=== PATIENT | female | born 1990 | race Caucasian/White ===

== ENCOUNTER → 2022-12-10 15:07 | Outpatient (CLI) | payer OTHER, SELFPAY ==
--- NOTE | 2022-12-10 15:12 | DI.US.S_ITS ---
PROCEDURE: US OB <= 14 WEEKS FETUS INDICATIONS: VIABILITY CHECK OUTSIDE/PRIOR DATING DATA: Last menstrual period (LMP): 10/06/22 LMP-based estimated date of delivery (TOVA): 07/13/23. First dating scan (date and location): This study. Estimated date of delivery (TOVA) from first dating scan: 07/20/23. The calculations are made using the current TOVA of 07/20/23. TECHNIQUE: Real-time scanning was performed of the fetus and maternal pelvic organs, with image documentation. Endovaginal scanning was also performed to better visualize the fetus and maternal ovaries. COMPARISON: None. FINDINGS: Embryo: [place]-rump length is 1.8 cm, which correlates with a gestational age of 8 weeks 2 days, +/-5 days. Heart rate: 162 beats per minute Maternal organs: Ovaries normal considering gestational status. IMPRESSION: Early 1st trimester gestation, viable, with heart rate 162 beats per minute and with the delivery date projected to be centered on 07/20/23, +/-5 days. Follow-up anatomic survey at approximately 20 weeks gestation We strive to produce accurate, complete, and clear reports of imaging services. To assist us in improving patient care, this report was composed using standard report templates and voice recognition software. Therefore, it may contain abnormal punctuation, insertions and/or omissions. Occasional wrong-word or sound-alike substitutions may occur. Though we review the report and make efforts to correct it, we do recommend that the report be read carefully in proper context to recognize any text inaccuracies. Dictated by: Behzad Guido M.D. on 12/10/2022 at 16:15 Approved by: Behzad Guido M.D. on 12/10/2022 at 16:18
== END ==
PROVIDERS: PCP Nurse Practitioner Family; Referring Provider Advanced Practice Midwife; Visit Provider Advanced Practice Midwife
DX: O36.80X0 Pregnancy with inconclusive fetal viability, not applicable or unspecified (principal)
CPT/HCPCS: 76801

== ENCOUNTER → 2023-03-04 08:46 | Outpatient (CLI) | payer OTHER, SELFPAY ==
--- NOTE | 2023-03-04 | DI.US.S_ITS ---
PROCEDURE: US OB >= 14 WEEKS FETUS INDICATIONS: 20 WEEK ANATOMY SCAN OUTSIDE/PRIOR DATING DATA: Last menstrual period (LMP): 10/06/2022. LMP-based estimated date of delivery (TOVA): 07/13/2023. First dating scan (date and location): 12/10/2022. Estimated date of delivery (TOVA) from first dating scan: 07/20/2023. The calculations are made using the working TOVA of 07/20/2023. TECHNIQUE: Real-time scanning was performed of the fetus, with image documentation and biometric measurements. Endovaginal scanning: None COMPARISON: None. FINDINGS: General: A single living intrauterine gestation is present. Presentation: Vertex. Placenta: Placental position is anterior , without previa. Amniotic fluid index: 15.0 cm, normal range is 5-24 cm. Single deepest vertical pocket is 4.4 cm. heart rate: 147 beats per minute. Maternal cervical canal: 3.7 cm long. Normal lower limit is 2.5 cm. biometrics: Biparietal diameter: 4.7 cm, 20 week 1 day Head circumference: 17.3 cm, 19 week 6 day Abdominal circumference: 14.7 cm, 20 week 0 day Femur length: 3.0 cm, 19 week 2 day Clinically estimated gestational age: 20 week 2 day Composite gestational age from present scan: 19 week 6 day Estimated weight and percentile: 308 g, 18 percentile Anatomic survey: Neuro: Ventricles are non-dilated at less than 10 mm. Cisterna magna is normal at 3-11 mm. Cerebellum is normal in size and morphology. Nuchal skin fold: Normal at less than 6 mm between 14-21 weeks gestational age. Face: Nose and lips, facial profile are normal. Spine: No evidence for spina bifida. Heart: 4-chambered heart is present, with normal ventricular outflow tracts. Diaphragm: Diaphragm is intact. Stomach: Left-sided stomach is present. Kidneys: No hydronephrosis. Normal is less than 5 mm in 2nd trimester, less than 7 mm in 3rd trimester. Cord: 3-vessel cord has orthotopic insertion. Bladder: Normal in size. Extremities: All 4 extremities identified. IMPRESSION: Single live intrauterine consistent with 19 week 6 day gestation by current ultrasound Normal anatomic survey Approved by: Tr Keith M.D. on 03/04/2023 at 15:13
== END ==
PROVIDERS: PCP Nurse Practitioner Family; Referring Provider Advanced Practice Midwife; Visit Provider Advanced Practice Midwife
DX: Z34.02 Encounter for supervision of normal first pregnancy, second trimester (principal); Z3A.19 19 weeks gestation of pregnancy
CPT/HCPCS: 76811

== ENCOUNTER 2023-07-24 22:04 | Inpatient (IN) | payer OTHER, SELFPAY ==
--- NOTE | 2023-07-24 22:29 | PM.OBHP.1 ---
OB HPI Date/Time Date of admission: 07/24/23 Date Patient Seen: 07/24/23 Time Patient Seen: 22:29 History of Present Condition Chief complaint: Induction : 1 Para: 0 Estimated Date of Delivery: 07/20/23 Estimated Gestational Age (weeks): 40w4d Narrative: Kisha Martinez is a 32 year old female at 40w4d by 8 week ultrasound, one week discrepant from her LMP dating. She reported PROM on 07/24/23 at 1000, clear fluid, and had reactive NST at CNM office before noon when she was normotensive and afebrile. She opted for expectant management for 12 hours, and came to for labor augmentation tonight at 2200. Kisha has had a normal with CNMs complicated only by an E.coli UTI in early that resolved with antibiotics. Her pre- BMI was 20 and she gained 52 lbs during her . Kisha has been leaking copious clear fluid all day. She has not had any contractions but has had upper abdominal pain that comes and goes since about 1700. Baby has been moving well all day. She has no other complaints. She is open to options tonight and accepts benadryl as a sleep aid. Kisha is planning an unmedicated . She is with her , Jordan, and they are excited to meet their first daughter! Indications Other reason(s) for admission: PROM x 12 hours History of Present care: good care, initiated at week # (8), number of visits (13) and pounds weight gain (52) Dating criteria: based on 1st trimester US only Ultrasounds: normal 1st trimester US and normal mid trimester US Obstetrical complications: none Medical complications: genitourinary (UTI at B) Preadmission Labs Blood type: O (+) positive -: Antibody screen: negative, Cystic fibrosis screen: unknown, GBS status: negative, HBsAG: negative, HIV: negative, HSV 1: unknown, HSV 2: unknown and RPR/VDLR: negative -: Chlamydia screen: not detected and Gonorrhea screen: not detected -: Rubella: immune and Varicella: immune HCT: 37 HCAB: negative PAP: Normal Cell-free DNA: Negative, XX 1 hr GTT: 76 Prior (ies) History: none Evaluation Evaluation Baseline heart rate: 120 Variability: Moderate (11-25) monitor accelerations: Present Monitor Decelerations: Absent Contraction Frequency (minutes): 7 (irregular) Uterine Contraction Intensity: Mild Category of Tracing: Reactive Comments: Exam not peformed; deferred due to [facility] Medical History Migraine Surgical History History of lumpectomy of left breast Family History (Updated 07/24/23 @ 23:15 by Amber Santoyo CNM, KEIRA) Mother Cancer Father Cancer Grandmother Cancer Diabetes mellitus Lung disease Grandfather Lung disease Other Glaucoma Twins live born in hospital Social History Smoking Status: Never smoker Meds Home Medications and Allergies Home Medications Medication Instructions Recorded Confirmed Type Lactobacil rhamnosus GG 10 billion 1 cap PO DAILY 08/18/18 08/18/18 History cell-inulin 200 mg sprinkle capsule ([facility]) cholecalciferol (vitamin D3) 50 2,000 unit PO DAILY 08/18/18 08/18/18 History mcg (2,000 unit) capsule Allergies Allergy/AdvReac Type Severity Reaction Status Date / Time No Known Drug Allergies Allergy Verified 07/24/23 23:22 Review of Systems Review of Systems Narrative: Negative except as mentioned in HPI. OB Exam Vital signs Blood Pressure: 120/70 Pulse Rate: 75 Respiratory Rate: 18 Temperature: 97.9 F Resp Effort & Inspection: normal respiratory effort Cardio Rate: regular rate Rhythm: regular rhythm Heart Sounds: S1 normal, S2 normal and normal, physiologic split S2 Extremities Lower extremity: Yes normal to inspection GI Inspection: normal to inspection Presentation: vertex (confirmed by ultrasound in office today (07/24/23)) Estimated Weight (lbs): 8 Amniotic Fluid: clear Objective Labs 07/24/23 23:00 Assessment and Plan Assessment and Plan Assessment and Plan narrative: Term nulliparous woman GBS negative Rh positive Reactive NST on admission Premature rupture of membranes at term Admit to L&D Cervical ripening overnight. Plan for pitocin augmentation PRN in the AM Cervical exam PRN for plan of care Continuous monitoring with medications Anticipate NSVB.
[2023-07-24 22:46] VITALS: BP 120/70
[2023-07-24 22:59] VITALS: BP 120/70; PULSE 75; RESP 18; TEMP 36.6
[2023-07-24 23:11] LABS: Add Manual Diff / Slide Review NO; Basophils Absolute Auto 0 /uL (0-100); Basophils Percent Auto 0.2 % (0-2); Eosinophils Absolute Auto 0 /uL (0-450); Eosinophils Percent Auto 0.3 % (2-4); Hematocrit 34.8 % (36-46); Hemoglobin 12.3 g/dL (12.0-16.0); Lymphocytes Absolute Auto 1300 /uL (1100-4500); Lymphocytes Percent Auto 12.7 % (25-40); Mean Corpuscular HGB Conc 35.2 % (30-36); Mean Corpuscular Hemoglobin 33.6 PG (26-34); Mean Corpuscular Volume 95.6 fL (80-100); Monocytes Absolute Auto 500 /uL (0-900); Monocytes Percent Auto 5.2 % (3-14); Neutrophils Absolute Auto 8300 /uL (1500-7000); Neutrophils Percent Auto 81.6 % (50-75); Platelet Count 164 X10^3/uL (150-400); Red Blood Cell Count 3.65 X10^6/uL (4.0-5.2); Red Cell Distribution Width 13.7 % (11.6-14.8); White Blood Cell Count 10.2 X10^3/uL (4.5-11.0)
[2023-07-24] MEDS: diphenhydrAMINE 50 MG/ML VIAL IV (23:16)
[2023-07-24] MEDS: miSOPROStoL 25 MCG TABLET 50 MCG SL (23:16)
[2023-07-25] MEDS: miSOPROStoL 25 MCG TABLET 50 MCG SL (03:19)
--- NOTE | 2023-07-25 03:30 | PM.OBPNLAB ---
Date/Time Date Patient Seen: 07/25/23 Time Patient Seen: 03:00 Pain Control Pain control: tolerating well Comments: Kisha trying to rest. Pelvic Exam Comments: Exam deferred; prom Contractions Monitor mode: External Contraction intensity: Mild Status status: Category l Heart Rate Baseline: 125 Monitor Accelerations: Present Monitor Decelerations: Absent Monitor Variability: Moderate Comments: VS BP 95/55 HR 71 bpm Temp 35.9 C Assessment and Plan Comments: with PROM x 15 hours GBS neg Afebrile FHR Cat 1 Give 2nd misoprostol now Continuous monitoring Encourage sleep Anticipate NSVB
--- NOTE | 2023-07-25 09:48 | PM.OBPNLAB ---
Date/Time Date Patient Seen: 07/25/23 Time Patient Seen: 09:49 Pain Control Pain control: tolerating well Comments: Kisha is laboring well while resting in bed, well supported by Jordan and her mom just arrived. Feeling contractions in her back. Pelvic Exam Comments: Deferred; PROM Contractions Date/Time contractions began: 07/25/2023 at approx 0730. Contractions on admission: none Monitor mode: External Contraction intensity: Mild Status status: Category l Heart Rate Baseline: 125 Monitor Accelerations: Present Monitor Decelerations: Absent Monitor Variability: Moderate Assessment and Plan Assessment: induction ongoing Comments: with PROM x 23 hours GBS neg FHR Cat 1 Intermittent monitoring Labor support Anticipate
[2023-07-25] MEDS: ONDANSETRON 4 MG/2 ML INJ IV (13:18)
--- NOTE | 2023-07-25 14:08 | PM.OBPNLAB ---
Date/Time Date Patient Seen: 07/25/23 Time Patient Seen: 12:00 Pain Control Pain control: tolerating well Comments: Kisha has been laboring well in bed. Pelvic Exam Dilation (cm): 4 Effacement (%): 90 station: -1 Amniotic membrane status: Intact Contractions Monitor mode: External Contraction frequency (min): 3 Contraction duration (min): 1 Contraction pattern: Regular Contraction intensity: Strong/Firm Status Heart Rate Baseline: 125 Comments: Reassuring FHR by doppler. Baseline 125 Increases present Decreases absent Assessment and Plan Comments: G1PO in early labor at term GBS neg PROM x 26 hours, afebrile Reassuring FHR by doppler Recommend getting in tub for pain management Continue frequent position changes Provide reassurance for normal labor Anticipate NSVB
--- NOTE | 2023-07-25 15:00 | PM.OBPNLAB ---
Date/Time Date Patient Seen: 07/25/23 Time Patient Seen: 15:00 Pain Control Pain control: tolerating well Pelvic Exam Amniotic membrane status: Ruptured Comments: Kisha is working hard with contractions. Feeling lots of pressure. Exam deferred due to PROM and active labor pattern/behavior. VS: 121/60 69 bpm 36.1 C Contractions Date/Time contractions began: 0707/25/23 Monitor mode: External Contraction frequency (min): 3 Contraction pattern: Regular Contraction intensity: Strong/Firm Status Heart Rate Baseline: 125 Comments: Increases noted Decreases absent Assessment and Plan Comments: at term PROM x 29 hours Afebrile GBS neg FHR reassuring by doppler Active labor Continue labor support Anticipate
[2023-07-25] MEDS: OXYTOCIN PREMIX 30 UNIT/500 ML PLAST..BAG IV (18:52)
[2023-07-25] MEDS: LACTATED RINGERS 1,000 ML 100 ML IV (18:53)
--- NOTE | 2023-07-25 19:30 | PM.OBPNLAB ---
Date/Time Date Patient Seen: 07/25/23 Time Patient Seen: 19:30 Pain Control Pain control: tolerating well Comments: Kisha has been pushing well for 3 hours. Getting frustrated. Pelvic Exam Dilation (cm): 100 Effacement (%): 100 station: +1 Amniotic membrane status: Ruptured Contractions Monitor mode: External Contraction frequency (min): 3 Contraction pattern: Regular Contraction intensity: Strong/Firm Status Heart Rate Baseline: 125 Comments: Increases noted Decreases absent VS: 116/56 HR 77 bp Temp 36.1 C Assessment and Plan Comments: at term in 2nd stage labor x 3 hours ROM x 33 hours, afebrile GBS neg FHR reassuring by doppler Hemorrhoids Support hemorrhoids during pushing. Consult with OB backup to continue pushing. Pitocin started 1900 due to contractions spacing out. Anticipate NSVB.
--- NOTE | 2023-07-25 21:56 | PATH_ITS ---
[facility] Accession Number: [id number] No. of containers..01 Tissue . 01 Material submitted: . placenta - PLACENTA . 01 Diagnosis: PLACENTA: Intact lepe placenta with features of maturation consistent with third trimester gestational age. Placental weight 437 grams ( gestational age not provided). Centrally inserted, three-vessel, unremarkable umibilical cord; no arteritis, funisitis, true knots, or thrombi identified. Unremarkable membranes; no evidence of acute chorioamnionitis or features of meconium staining. Placental cotyledon parenchyma with infarct and increased perivillous fibrin deposition (approximately 20% per gross examination). No evidence of villitis, infectious organisms or features of abruption. See comment. [facility] 07/29/2023 1337 Local . 01 Comment: The presence of increased perivillous fibrin is known to be associated with impairment of gas exchange and can lead to growth restriction, oligohydramnios amongst other entities. Features of massive perivillous fibrin deposition are not identified. Prominent and increased dystrophic calcifications are also noted which are likely associated with increased gestational age. . 01 Electronically signed: . Ashley Garcia MD, Pathologist NPI- [id number] . 01 Gross description: . Received in formalin with two identifiers and placenta, is an ovoid lepe placenta with a trimmed weight of 437 grams and measuring 22.7 x 13.4 x 1.7 cm. No accessory lobes are identified. . The membranes are brown and translucent with some minor areas of brown thickening occupying less than 10% of the membrane surface. The membranes insert and rupture at the margin. . The attached segment of cord measures 43.3 cm in length by 1.5 cm in average diameter with gelatinous areas. The cord has a leftward coil with an index of approximately 1 twist per 5 cm. The second segment of cord measures 8.2 cm in length and is gelatinous measuring 1.9 cm in average diameter. Insert centrally, and sectioning reveals unremarkable trivascular architecture with no knots or lesions identified. . The surface is blue-hooks with normal arborizing vasculature and no discolorations or lesions identified. . The maternal surface is apparently complete with numerous white gritty areas consistent with calcification occupying approximately 40% of the maternal surface. Sectioning reveals a red spongy to gritty cut surface with a thin brown, firm area located centrally, occupying approximately 20% of the cut surface. No additional lesions are identified. . Certified Technician sections are submitted as follows: A1: Membrane roll and placental end of cord. A2: Membrane roll and detached segment of cord. A3-A4: Central full thickness cut and maternal surface discolorations. A5-A7: Full thickness unremarkable sections located eccentrically. ([id number]) /SUSAN 07/27/2023 1025 Local . 01 Pathologist provided ICD-10: O43.90, O42.02 . 01 CPT . 214398 Specimen Comment: A courtesy copy of this report has been sent to [facility] Pathology Performed at: 01 [facility] [address] [place] [address], [place], [place] [id number] MD Broderick Borjas MD Phone: [phone]
[2023-07-25] MEDS: KETOROLAC 30 MG/ML VIAL IV (22:16)
[2023-07-25] MEDS: ACETAMINOPHEN 325 MG TABLET 650 MG PO (22:17)
--- NOTE | 2023-07-25 22:17 | PM.OBPRVD ---
Labor & Delivery Delivery date: 07/25/23 Cervical ripening method: per misoprostal protocol Delivery augmentation: pitocin Delivery monitor: external FHT Route of delivery: L&D Laceration Description: Perineal - 2nd Degree Delivery repair: vicryl (3-0) Quantitative Blood Loss: 253 Anesthesia Type: None Narrative: Labor progressed well. Kisha began feeling the spontaneous urge to push approximately 1530 but didn't push consistently until 1615. Kisha pushed effectively for a long 2nd stage. FHR was resasuring by doppler throughout 2nd stage. Pitocin started 2 hours and 45 minutes into consistent pushing due to contractions shortening and spacing out. Max pitocin dose of 6 mu/min; Cat 2 continuous monitoring once pitocin initiated. NSVB of baby at 2052, shoulders delivered easily. Baby was stimulated, dried and placed on maternal abdomen when Kisha was ready to receive her. Apgars 8/9. They remained skin to skin while cord was cut and placenta was delivered. Placenta delivered spontaneously with maternal efforts and appeared to be intact but appears bilobed with unprotected vessels. Placenta sent to pathology: shaped like butterfly with central cord insertion. 3 vessel cord clamped and cut by Jordan at 17 minutes of life after cord pulsing had slowed. Cord blood collected for blood typing. Perineum inspected and found to have 2nd degree perineal laceration, repaired with 3-0 vicryl in usual fashion. Pitocin given per protocol for AMTSL. Blood loss measured and estimated loss is 253 mL. Mom and baby left stable and is being initiated. Kisha and Jordan are thrilled to meet their baby girlSalvador. Amber CROCKETT, CNM, IBCLC Baby 1: gender: Female Presentation: vertex Position: Left Occiput Anterior Placenta delivery description: Spontaneous and Abnormal Configuration Cord Vessel Description: 3 Vessels score (1 min): 8 score (5 min): 9 weight: 3.442 kg Plan for aftercare: Routine care
[2023-07-26] MEDS: IBUPROFEN 600 MG TABLET PO ×3 (04:13→16:11)
[2023-07-26] MEDS: ACETAMINOPHEN 325 MG TABLET 650 MG PO ×3 (04:14→16:11)
--- NOTE | 2023-07-26 22:09 | P.DS_ITS ---
Discharge Providers Provider Date of admission: 07/24/23 22:04 Discharge Date: 07/26/23 Primary care physician: KEIRA Galarza Consults: 07/24/23 22:26 Consult to Anesthesiology Urgent Comment: Consulting Provider: Anesthesiologist Reason for consultation: Epidural 07/26/23 21:51 Consult to [place] Worker Helper Routine Discharge provider: Amber Santoyo CNM, ARNP Summary Hospital Course Date Patient Seen: 07/26/23 Time Patient Seen: 21:00 Diagnoses: Z34.03, Z39.1, o70.1 Hospital Course: PROM x 12 hours, then admission for labor augmentation. 2 misoprostols resulted in labor not needing further medication until 2nd stage when pitocin initiated to increase contraction frequency/intensity. NSVB of baby girl over 2nd degree perineal laceration, repaired in usual fashion. QBL 253 mL. . Normal course. Peripartum Data Delivery Method: Natural Vaginal Laceration Description: Perineal - 2nd Degree Procedures: NSVB Perineal laceration repair 1: Gender: Female Discharge Diagnosis (1) Breast feeding status of mother: Status: Acute (2) Second degree perineal laceration during delivery: Status: Acute (3) (normal spontaneous vaginal delivery): Status: Acute Status at Discharge Cognitive/behavioral status at discharge: oriented and calm Functional status at discharge: independent ambulation Overall status at discharge: patient is progressing back to baseline Time Spent with Patient Time attestation: Total time spent providing and/or coordinating discharge services: Time spent: Less than 30 minutes Specific discharge activities: discharge teaching Objective Labs 07/24/23 23:00 Exam Vital Signs (past 8 hours): 106/54 72 bpm 12 r/min 98.6 F (axillary) SpO2: 100 % Other: Fundus firm at U-1, midline. Lochia light Perineum intact with moderate edema Discharge Plan Discharge Plan Patient Disposition: Home Discharge orders & Medications Prescriptions: Continued cholecalciferol (vitamin D3) 2,000 unit capsule 2,000 unit PO DAILY [facility] 10 billion cell -200 mg capsule, sprinkle 1 cap PO DAILY Medication counseling provided by Pharmacist: No Follow up/Referrals: Elizabeth Alonzo ARNP [Primary Care Provider] - Amber Santoyo CNM, ARNP [Advanced Academic Associate] - 2 Weeks (2 week and 6 week visits as scheduled in patient e-mail) Diet/Activity/Treatments Diet: Diet as Tolerated and Regular Diet comment: Increase fiber and fluids to support healing and soft stools Activity: Low albert for 2 weeks Cold/Heat Therapy: as needed for pain Skin/Wound/Dressing Care Skin care: usual care Report to your healthcare provider any signs of infection, such as:: chills, fever, unusual drainage and unusual redness Visit Report/Discharge Packet Stand Alone Forms: Discharge: Care, Patient Portal/API Discharge Data Primary Care Provider: Elizabeth Alonzo
== END 2023-07-26 22:55 | disposition home or self-care (01) | DRG 807 ==
PROVIDERS: Admitting Provider Advanced Practice Midwife; PCP Nurse Practitioner Family; Referring Provider Advanced Practice Midwife; Visit Provider Advanced Practice Midwife
DX: O42.12 Full-term premature rupture of membranes, onset of labor more than 24 hours following rupture (principal); Z37.0 Single live birth; O70.1 Second degree perineal laceration during delivery; Z3A.40 40 weeks gestation of pregnancy
CPT/HCPCS: 36415; 59050; 85025; 86850; 86900; 86901; G0379; J1200; J1885; J2405; J2590

== ENCOUNTER → 2024-01-31 07:23 | Outpatient (CLI) | payer OTHER, SELFPAY ==
[2024-01-31 09:22] LABS: COVID-19 CEPHEID 4-PLEX PCR Negative (Negative); Influenza A - CEPHEID Flu A NEGATIVE (NEGATIVE); Influenza B - CEPHEID Flu B NEGATIVE (NEGATIVE); Respiratory Syncytial Virus Negative (Negative)
== END ==
PROVIDERS: PCP Nurse Practitioner Family; Visit Provider Physician Assistant Surgical
DX: J02.9 Acute pharyngitis, unspecified (principal)
CPT/HCPCS: 0241U; 87070